=== PATIENT | male | born 1980 | race African-American/Black ===

== ENCOUNTER 2018-02-18 02:46 | Emergency (ER) | payer SELFPAY ==
[~2018-02-18] VITALS: Ht 188 cm; Wt 87.0 kg
[2018-02-18] MEDS ORDERED: LIDOCAINE HCL 1% 20ML VIAL (Pyxis) INJ MC ONE (04:15)
[2018-02-18] MEDS ORDERED: IBUPROFEN 600MG TABLET PO ONE (04:15)
[2018-02-18] MEDS ORDERED: TETANUS, DIPHTHERIA, PERTUSSIS VAC/PF 0.5ML (>7YR OLD) IM ONE (04:15)
[2018-02-18] MEDS ORDERED: BACITRACIN ZINC OINT UDPKT TOP ONE (04:15)
[2018-02-18 05:57] VITALS: BP 100/41
== END 2018-02-18 05:59 | disposition home or self-care (01) ==
LOC: ER 02:46
DX: S61.412A Laceration without foreign body of left hand, initial encounter (principal); F17.200 Nicotine dependence, unspecified, uncomplicated; F12.10 Cannabis abuse, uncomplicated; X99.1XXA Assault by knife, initial encounter; Y93.89 Activity, other specified; Y92.488 Other paved roadways as the place of occurrence of the external cause
CPT/HCPCS: 12004; 73130; 90471; 90715; 99284; J3490; Z7610

== ENCOUNTER 2018-02-19 16:10 | Emergency (ER) | payer MEDICAID ==
[~2018-02-19] VITALS: Ht 188 cm; Wt 90.0 kg
[2018-02-19 16:30] VITALS: BP 133/96
== END 2018-02-19 17:50 | disposition left against medical advice (07) ==
LOC: ER 17:40
DX: Z53.21 Procedure and treatment not carried out due to patient leaving prior to being seen by health care provider (principal)

== ENCOUNTER 2018-03-03 23:20 | Emergency (ER) | payer MEDICAID ==
[~2018-03-03] VITALS: Ht 188 cm; Wt 87.0 kg
[2018-03-04] MEDS ORDERED: LIDOCAINE HCL 1% 20ML VIAL (Pyxis) INJ MC ONE (05:15)
[2018-03-04] MEDS ORDERED: CEFTRIAXONE SODIUM 250 MG/VIAL IM ONE (05:15)
[2018-03-04] MEDS ORDERED: LIDOCAINE HCL/PF 1% 10 MG/ML 5ML VIAL IJ NR (05:30)
[2018-03-04 06:15] VITALS: BP 122/75
== END 2018-03-04 06:17 | disposition home or self-care (01) ==
LOC: ER 23:20
DX: Z48.02 Encounter for removal of sutures (principal); L08.9 Local infection of the skin and subcutaneous tissue, unspecified; F17.200 Nicotine dependence, unspecified, uncomplicated; X58.XXXD Exposure to other specified factors, subsequent encounter; Z98.890 Other specified postprocedural states
CPT/HCPCS: 96372; 99283; J0696; J3490; Z7610